=== PATIENT | female | born 1975 | race Caucasian/White ===

== ENCOUNTER 2016-07-11 14:37 | Emergency (ER) | payer OTHER ==
[~2016-07-11] VITALS: Ht 162.6 cm; Wt 70.0 kg
[~2016-07-11 14:37] MED LIST: CALCCHW25 PO; CLON0.5T PO; OMEGCAP21 PO; TAB-TAB PO; VITA-13 PO; VITA100017 PO
[2016-07-11 14:39] VITALS: BP 140/80; PULSE 78; RESP 15; TEMP 98.1; O2SAT 98
--- NOTE | 2016-07-11 14:51 | PD ---
Physical Exam Time Seen by Provider: 14:49 Narrative 41yo F c/o right sided lower back pain that radiates around to R abdomen since 9am this morning. Hx of urinary problems. denies hematuria, dysuria. Reports N w/o V. denies fever. Denies hx of kidney stones. Patient stable. Patient seen in triage. Awaiting bed placement. Data Data Last Documented VS Vital Signs Date Time Temp Pulse Resp B/P Pulse Ox O2 Delivery O2 Flow Rate FiO2 07/11/16 14:39 98.1 78 15 140/80 98 MDM Supervised Visit with IZABEL: Katie Ayala Jul 11, 2016 14:51
[2016-07-11] MEDS ORDERED: SODIUM CHLOR 0.9% 1000 ML INJ 1,000 ML IV SCH (17:36)
--- NOTE | 2016-07-11 17:41 | PD ---
HPI Chief Complaint: Abdominal Pain Time Seen by Provider: 17:38 Travel History International Travel<30 days: No Contact w/Intl Traveler<30days: No Traveled to known affect area: No History of Present Illness HPI 41-year-old female presents to the emergency department for evaluation of right back pain that radiates to the right lower quadrant. Patient states this started at 9 AM this morning. She does state she has a history of similar back pain once in the past. She believes she had a ruptured ovarian cyst. Patient does report history of hysterectomy. She denies any fevers or chills. No chest pain or shortness of breath. She does report nausea, but no vomiting or diarrhea. No blood in her stool. She has no chronic medical problems and takes no prescribed medications. Patient denies any abnormal vaginal discharge. PFSH Past Medical History Hx Anticoagulant Therapy: Yes (FIBRINOGEN DEFICIENCY) Anxiety: Yes Depression: Yes Cancer: No Cardiovascular Problems: Yes (hx of pvc) Diabetes: No Diminished Hearing: No Endocrine: No Genitourinary: No Hepatitis: No Hiatal Hernia: No Immune Disorder: No Musculoskeletal: Yes (osteoarthritis of the lower back chronic headaches) Neurologic: No Psychiatric: Yes (generalized anxiety) Reproductive: Yes (ENDOMETRIOSIS HX, MENORRHAGIA) Respiratory: No Thyroid Disease: No ?: Not : 2 Para: 2 Past Surgical History AICD: No Body Medical Devices: BREASTS Section: Yes (X 2) Gynecologic Surgery: Yes (LAPAROSCOPY, HYSTEROSCOPY, C SECTION X2) Hysterectomy: Yes Joint Replacement: No Pacemaker: No Other Surgery: Yes (BREAST AUGMNETATION, RIGHT WRIST GANGLION CYST REMOVED) Social History Alcohol Use: Yes (OCC) Tobacco Use: No Substance Use: No Allergies-Medications (Allergen,Severity, Reaction): Coded Allergies: Adhesives (Verified Allergy, Severe, RASH, 07/11/16) Avelox (Verified Allergy, Severe, Hallucinations, 07/11/16) Cortisone (Verified Allergy, Severe, LOCAL SKIN RXN, 07/11/16) Flexeril (Verified Allergy, Severe, HALLUCINATIONS, 07/11/16) Reported Meds & Prescriptions Reported Meds & Active Scripts Active Lortab (Hydrocodone-Acetaminophen) 5-325 Mg Tab 1 Tab PO Q6H PRN Ondansetron Odt 4 Mg Tab 4 Mg SL Q6HR PRN Reported Flonase Nasal [place] (Fluticasone Nasal [place]) 50 Mcg/Act [place] 50 Mcg EACH NARE DAILY Clonazepam 1 Mg Tab 1.5 Mg PO HS Review of Systems Except as stated in HPI: all other systems reviewed are Neg Physical Exam Narrative GENERAL: Well-nourished, well-developed female patient, ambulatory. Afebrile. SKIN: Focused skin assessment warm/dry. HEAD: Normocephalic. Atraumatic. EYES: No scleral icterus. No injection or drainage. NECK: Supple, trachea midline. No JVD or lymphadenopathy. CARDIOVASCULAR: Regular rate and rhythm without murmurs, gallops, or rubs. RESPIRATORY: Breath sounds equal bilaterally. No accessory muscle use. Lungs sounds are clear to auscultation. GASTROINTESTINAL: Abdomen soft and nondistended. Patient has tenderness over right lower quadrant. No other tenderness to palpation. MUSCULOSKELETAL: No cyanosis, or edema. BACK: Nontender without obvious deformity. No CVA tenderness. Data Data Last Documented VS Vital Signs Date Time Temp Pulse Resp B/P Pulse Ox O2 Delivery O2 Flow Rate FiO2 07/11/16 17:49 67 18 123/71 100 Room Air 07/11/16 14:39 98.1 Orders Complete Blood Count With Diff (07/11/16 17:36) Comprehensive Metabolic Panel (07/11/16 17:36) Lipase (07/11/16 17:36) Urinalysis - C+S If Indicated (07/11/16 17:36) Ct Abd/Pel W Iv Contrast(Rout) (07/11/16 17:36) Iv Access Insert/Monitor (07/11/16 17:36) Ecg Monitoring (07/11/16 17:36) Oximetry (07/11/16 17:36) Ondansetron Inj (Zofran Inj) (07/11/16 17:45) Sodium Chlor 0.9% 1000 Ml Inj (Ns 1000 M (07/11/16 17:36) Sodium Chloride 0.9% Flush (Ns Flush) (07/11/16 17:45) Morphine Inj (Morphine Inj) (07/11/16 17:45) Iohexol 350 Inj (Omnipaque 350 Inj) (07/11/16 18:39) Us Pelvis Comp W Dop Transvag (07/11/16 ) Labs Laboratory Tests Test 07/11/16 18:00 White Blood Count 9.4 TH/MM3 Red Blood Count 5.14 MIL/MM3 Hemoglobin 14.8 GM/DL Hematocrit 44.8 % Mean Corpuscular Volume 87.1 FL Mean Corpuscular Hemoglobin 28.7 PG Mean Corpuscular Hemoglobin 33.0 % Concent Red Cell Distribution Width 13.2 % Platelet Count 212 TH/MM3 Mean Platelet Volume 9.4 FL Neutrophils (%) (Auto) 60.0 % Lymphocytes (%) (Auto) 31.6 % Monocytes (%) (Auto) 6.9 % Eosinophils (%) (Auto) 1.2 % Basophils (%) (Auto) 0.3 % Neutrophils # (Auto) 5.6 TH/MM3 Lymphocytes # (Auto) 3.0 TH/MM3 Monocytes # (Auto) 0.7 TH/MM3 Eosinophils # (Auto) 0.1 TH/MM3 Basophils # (Auto) 0.0 TH/MM3 CBC Comment DIFF FINAL Differential Comment Urine Color YELLOW Urine Turbidity CLEAR Urine pH 5.5 Urine Specific [place] 1.014 Urine Protein NEG mg/dL Urine Glucose (UA) NEG mg/dL Urine Ketones NEG mg/dL Urine Occult Blood NEG Urine Nitrite NEG Urine Bilirubin NEG Urine Urobilinogen LESS THAN 2.0 MG/DL Urine Leukocyte Esterase NEG Urine RBC LESS THAN 1 /hpf Urine WBC LESS THAN 1 /hpf Urine Bacteria FEW /hpf Urine Mucus FEW /lpf Microscopic Urinalysis Comment CULT NOT INDICATED Sodium Level 139 MEQ/L Potassium Level 3.6 MEQ/L Chloride Level 105 MEQ/L Carbon Dioxide Level 22.3 MEQ/L Anion Gap 12 MEQ/L Blood Urea Nitrogen 14 MG/DL Creatinine 0.73 MG/DL Estimat Glomerular Filtration 87 ML/MIN Rate Random Glucose 74 MG/DL Calcium Level 10.1 MG/DL Total Bilirubin 0.4 MG/DL Aspartate Amino Transf 15 U/L (AST/SGOT) Alanine Aminotransferase 28 U/L (ALT/SGPT) Alkaline Phosphatase 66 U/L Total Protein 7.9 GM/DL Albumin 4.2 GM/DL Lipase 184 U/L [facility] Medical Decision Making Medical Screen Exam Complete: Yes Emergency Medical Condition: Yes Medical Record Reviewed: Yes Interpretation(s) CT abdomen/pelvis - CONCLUSION: Possible hemorrhagic cyst of the right ovary with slight fluid in the cul-de-sac and follow up is suggested with pelvic ultrasound in 3 months. Pelvic US - CONCLUSION: There is fluid in the cul-de-sac with a complex mass in the right ovary possibly a complicated cyst, however follow up is suggested with repeat pelvic ultrasound in 3 months. Differential Diagnosis Appendicitis versus ovarian cyst versus UTI Narrative Course 41-year-old female presents to the emergency department for evaluation of right lower quadrant abdominal pain that started at 9 AM this morning. CBC, CMP, lipase, UA are ordered and pending. CT abdomen/pelvis with IV contrast is ordered and pending. Patient is given normal saline 1 L IV bolus, morphine 4 mg IV, Zofran 4 mg IV. CBC is unremarkable. CMP is unremarkable. Lipase is 184. UA shows few bacteria, culture not indicated. CT abdomen/pelvis shows possible hemorrhagic cyst of the right ovary with slight fluid in the cul-de-sac and follow up is suggested with pelvic ultrasound in 3 months. Pelvic US is ordered and pending. US shows There is fluid in the cul-de-sac with a complex mass in the right ovary possibly a complicated cyst, however follow up is suggested with repeat pelvic ultrasound in 3 months. I gave the patient a copy of her pelvic ultrasound report. She states she has a manager respiratory care that she will follow up with for repeat ultrasound. The patient will be given additional pain medication. She'll be discharged with a prescription for Lortab and Zofran. The patient is to return for any acute worsening of symptoms. She verbalizes agreement and understanding. Diagnosis Primary Impression: Ovarian cyst Qualified Code: N83.201 - Cysts of both ovaries Referrals: [facility] [employer] [facility] call for appointment Patient Instructions: General Instructions, Ovarian Cyst (ED) Additional Instructions: Follow-up with your manager respiratory care. You do need to have a repeat pelvic ultrasound in 3 months to re-evaluation ovarian cyst vs. mass. Take Lortab as directed as needed for pain. Take Zofran as instructed as needed for nausea/vomiting. Return to the emergency department for any acute worsening of symptoms. Med/Other Pt SpecificInfo: Prescription(s) given Scripts Hydrocodone-Acetaminophen (Lortab)5-325 Mg Tab1 Tab PO Q6H PRN (PAIN) #16 TAB Ref 0 Prov:Raghavendra Reese MD 07/11/16 Ondansetron Odt 4 Mg Tab4 Mg SL Q6HR PRN (Nausea/Vomiting) #16 TAB Ref 0 Prov:Brandy Solorio 07/11/16 Disposition: 01 DISCHARGE HOME Condition: Stable Brandy Solorio Jul 11, 2016 17:41
[2016-07-11] MEDS ORDERED: MORPHINE SULFATE 4 MG/ML INJ IV PUSH ONE (17:45)
[2016-07-11] MEDS ORDERED: ONDANSETRON HCL 4 MG/2 ML VIAL IVP ONE (17:45)
[2016-07-11] MEDS ORDERED: SODIUM CHLORIDE 0.9% FLUSH 10 ML FLUSH IV FLUSH PRN (17:45)
[2016-07-11] MEDS ORDERED: FLUT1SPR5 EACH NARE (17:46)
[2016-07-11] MEDS ORDERED: CLON1TAB PO (17:46)
[2016-07-11 17:49] VITALS: BP 123/71; PULSE 67; RESP 18; O2SAT 100
[2016-07-11] MEDS ORDERED: IOHEXOL 350 MG/ML 10 ML VIAL (for RAD DIAG) IV ONE (18:39)
--- NOTE | 2016-07-11 18:58 | RADRPT ---
EXAM DATE/TIME: 07/11/2016 18:27 [facility] COMPARISON: CT ABDOMEN & PELVIS W/O CONTRAST, February 05, 2015, 22:03. INDICATIONS : Abdominal pain with nausea. IV CONTRAST: 100 cc Omnipaque 350 (iohexol) IV ORAL CONTRAST: No oral contrast ingested. RADIATION DOSE: 8.46 CTDIvol (mGy) MEDICAL HISTORY : None SURGICAL HISTORY : Hysterectomy. section. ENCOUNTER: Initial ACUITY: 2 days PAIN SCALE: 5/10 LOCATION: abdomen TECHNIQUE: Volumetric scanning of the abdomen and pelvis was performed. Using automated exposure control and ad justment of the mA and/or kV according to patient size, radiation dose was kept as low as reasonably achievable to obtain optimal diagnostic quality images. FINDINGS: CT Abdomen: The liver, spleen, pancreas, kidneys, adrenals are unremarkable. There is no evidence for any appreciable pathological adenopathy, free fluid, or bowel obstruction. CT pelvis: There is no evidence for any significant adenopathy within the pelvis. There is slight flu id in the cul-de-sac and there is an approximate 3.2 cm mixed density mass in the right ovary not pre sent on the prior study may be a hemorrhagic cyst. CONCLUSION: Possible hemorrhagic cyst of the right ovary with slight fluid in the cul-de-sac and follow up is suggested with pelvic ultrasound in 3 months. Mariela Calvo MD on July 11, 2016 at 18:52 Board Certified Radiologist. This report was verified electronically.
[2016-07-11 18:59] LABS: AUTOMATED NEUTROPHIL # 5.6 TH/MM3 (1.8-7.7); BACTERIA, URINE FEW /hpf; BASOPHIL % 0.3 % (0.0-2.0); BLOOD, URINE NEG (NEG); COMMENT (UR) CULT NOT INDICATED; CULTURE IF INDICATED CULT NOT INDICATED; EOSINOPHIL # 0.1 TH/MM3 (0-0.4); EOSINOPHIL % 1.2 % (0.0-4.0); GLUCOSE,URINE NEG (NEG); HEMATOCRIT 44.8 % (35.0-46.0); HEMO FLAGS DIFF FINAL; KETONE, URINE NEG (NEG); LYMPH % 31.6 % (9.0-44.0); MEAN CELL VOLUME 87.1 FL (80.0-100.0); MEAN CORPUSCULAR HEMOGLOBIN 28.7 PG (27.0-34.0); MONO % 6.9 % (0.0-8.0); MUCUS URINE FEW /lpf (OCC); NITRITE,URINE NEG (NEG); PH, URINE 5.5 (5.0-8.5); PLATELET COUNT 212 TH/MM3 (150-450); RED BLOOD COUNT 5.14 MIL/MM3 (4.00-5.30); RED CELL DISTRIBUTION WIDTH 13.2 % (11.6-17.2); URINE COLOR YELLOW (YELLW/STRAW); WHITE BLOOD COUNT 9.4 TH/MM3 (4.0-11.0)
[2016-07-11 19:18] LABS: ANION GAP 12 MEQ/L (5-15); AST (GOT) 15 U/L (15-37); BICARBONATE 22.3 MEQ/L (21.0-32.0); BLOOD UREA NITROGEN 14 MG/DL (7-18); CHLORIDE 105 MEQ/L (98-107); GLOMERULAR FILTRATION RATE 87 ML/MIN (>89); POTASSIUM 3.6 MEQ/L (3.5-5.1); SODIUM (NA) 139 MEQ/L (136-145)
[2016-07-11 19:21] LABS: ALKALINE PHOSPHATASE 66 U/L (45-117); ALT (GPT) 28 U/L (10-53); TOTAL BILIRUBIN ADULT 0.4 MG/DL (0.2-1.0)
--- NOTE | 2016-07-11 20:33 | RADRPT ---
EXAM DATE/TIME: 07/11/2016 19:24 [facility] COMPARISON: CT ABDOMEN & PELVIS W CONTRAST, July 11, 2016, 18:27. INDICATIONS : Pelvic pain. MEDICAL HISTORY : . Endometriosis. Cervical stenosis. Menorrhagia. Ovarian cysts. Fibrinogen deficiency. H eadaches. Osteoarthritis. Depression. Anxiety. SURGICAL HISTORY : Hysterectomy. section. Breast augmentation. Right ganglion cyst removal. Laparoscopy. ENCOUNTER: Initial ACUITY: 1 day PAIN SCORE: 7/10 LOCATION: Bilateral pelvis MEASUREMENTS: UTERUS: Surgically absent RIGHT OVARY: 5.2 x 3.6 x 3.2 cm LEFT OVARY: 2.7 x 1.8 x 1.7 cm FINDINGS: There is free fluid in the cul-de-sac. There is a complex mass in the right ovary measuring 2.5 x 2.7 cm in size a may be a complicated cyst, however a solid mass is difficult to exclude. The uterus is absent surgically. There is a tiny cyst in the left ovary measuring 1.1 cm in size. CONCLUSION: There is fluid in the cul-de-sac with a complex mass in the right ovary possibly a complicated cyst, however follow up is suggested with repeat pelvic ultrasound in 3 months. Mariela Calvo MD on July 11, 2016 at 20:29 Board Certified Radiologist. This report was verified electronically.
[2016-07-11] MEDS ORDERED: ONDA4TAB7 SL (20:58)
[2016-07-11] MEDS ORDERED: HYDR-3533 PO (20:58)
[2016-07-11 21:00] VITALS: BP 122/66; PULSE 62; RESP 18; O2SAT 99
[2016-07-11] MEDS ORDERED: MORPHINE SULFATE 8 MG/ML INJ IV PUSH ONE (21:00)
[2016-07-11] MEDS ORDERED: HYDROmorphone HCL PF 1 MG/ML VIAL IV PUSH ONE (21:30)
== END 2016-07-11 22:02 | disposition home or self-care (01) ==
LOC: NEPD 14:37
DX: N83.201 Unspecified ovarian cyst, right side (principal)
CPT/HCPCS: 74177; 76830; 76856; 80053; 81001; 83690; 85025; 93975; 96361; 96374; 96375; 99284; J1170; J2270; J2405; J7030; Q9967